=== PATIENT | male | born 1960 | race Caucasian/White ===

== ENCOUNTER 2021-09-05 10:00 | Emergency (ER) | payer MEDICARE, OTHER | END 2021-09-05 11:40 | disposition short-term general hospital (02) | LOC: ER1 10:00 | DX: T20.20XA Burn of second degree of head, face, and neck, unspecified site, initial encounter (principal); T31.0 Burns involving less than 10% of body surface; T23.101A Burn of first degree of right hand, unspecified site, initial encounter; T23.102A Burn of first degree of left hand, unspecified site, initial encounter; I10 Essential (primary) hypertension; X08.8XXA Exposure to other specified smoke, fire and flames, initial encounter | CPT/HCPCS: 99283 ==

== ENCOUNTER 2021-09-08 11:50 | Emergency (ER) | payer MEDICARE, OTHER | END 2021-09-08 17:39 | disposition home or self-care (01) | LOC: ER1 11:50 | DX: T23.202A Burn of second degree of left hand, unspecified site, initial encounter (principal); T23.201A Burn of second degree of right hand, unspecified site, initial encounter; T20.20XA Burn of second degree of head, face, and neck, unspecified site, initial encounter; K21.9 Gastro-esophageal reflux disease without esophagitis; I10 Essential (primary) hypertension; W40.9XXA Explosion of unspecified explosive materials, initial encounter | CPT/HCPCS: 96372; 99283; J1885 ==